=== PATIENT | male | born 1950 | race Caucasian/White ===

== ENCOUNTER 2021-02-26 14:11 | Emergency (ER) | payer MEDICARE, OTHER, SELFPAY ==
[2021-02-26 14:16] VITALS: BP 150/78; PULSE 97; RESP 28; TEMP 36.7; O2SAT 96; BMI 28.5
--- NOTE | 2021-02-26 14:24 | DI.RAD.S_ITS ---
PROCEDURE: XR CHEST 2V INDICATIONS: covid +, continued cough, shortness of breath TECHNIQUE: 2 views of the chest were acquired. COMPARISON: None. FINDINGS: Surgical changes and devices: None. Lungs and pleura: Mild patchy bilateral perihilar opacity. Ill-defined densities within the right mid lung and lower lung. No pleural effusions or pneumothorax. Mediastinum: Mediastinal contours are normal. Heart size is normal. Bones and chest wall: No suspicious bony abnormalities. Soft tissues appear unremarkable. IMPRESSION: Bilateral pneumonia. Continued plain film surveillance is recommended to ensure resolution, and to exclude underlying or central malignancy. Dictated by: Cony Tinsley M.D. on 02/26/2021 at 15:17 Approved by: Cony Tinsley M.D. on 02/26/2021 at 15:18
[2021-02-26 15:30] VITALS: BP 139/85; PULSE 77; RESP 18; O2SAT 97
--- NOTE | 2021-02-26 15:51 | ED.FEVER ---
HPI - Fever <David Schneider PA-C - Last Filed: 02/26/21 19:55> General Chief Complaint: Fever Stated Complaint: Had COVID, Possible Pneumonia Time Seen by Provider: 02/26/21 14:19 Source: patient Mode of arrival: Ambulatory History of Present Illness HPI Narrative: Patient is a 70-year-old male presenting to the emergency department today for evaluation cough and shortness of breath. Patient states that he tested positive for COVID-19 on 02/13/2021 and has experienced increased cough, shortness of breath, and generalized myalgias since then. Patient states that he has also experienced continued fever and fatigue. He presents to the emergency department today concerned about pneumonia and requests a chest x-ray. Patient denies chills, chest pain, nausea, vomiting, diarrhea, abdominal pain, dysuria, hematuria, sore throat, earache, or any other concerning symptoms. No further concerns were voiced at this time. Related Data Home Medications Medication Instructions Recorded Confirmed No Known Home Medications 02/26/21 02/26/21 Allergies Allergy/AdvReac Type Severity Reaction Status Date / Time adhesive tape Allergy Intermediate Redness of Verified 02/26/21 14:22 Skin Review of Systems <David Schneider PA-C - Last Filed: 02/26/21 19:55> Constitutional Constitutional: Denies chills, Reports fatigue, Reports fever(s), Denies frequent falls, Denies lethargy and Denies weakness ENT Ears, Nose, Mouth, and Throat: Denies change in voice, Denies dizziness, Denies neck pain, Denies sore throat and Denies throat swelling Cardiovascular Cardiovascular: Denies chest pain, Denies irregular heart rhythm, Denies lightheadedness, Denies palpitations, Reports dyspnea, Denies dyspnea on exertion and Denies orthopnea Respiratory Respiratory: Reports cough, Reports dyspnea, Denies dyspnea on exertion and Denies wheezing Gastrointestinal Gastrointestinal: Denies abdominal pain, Denies change in bowel habits, Denies diarrhea, Denies nausea and Denies vomiting Genitourinary Genitourinary: Denies hematuria, Denies flank pain, Denies urinary incontinence and Denies urinary urgency Musculoskeletal Musculoskeletal: Denies back pain, Denies muscle weakness, Reports myalgias, Denies neck pain, Denies numbness and Denies tingling Integumentary/Breasts Skin/Breast: Denies pruritus, Denies erythema, Denies rash and Denies wounds Neurologic Neurologic: Denies dizziness, Denies frequent falls, Denies numbness, Denies tingling and Denies weakness Endocrine Endocrine: Reports fatigue and Denies palpitations Allergic/Immunologic Allergic/Immunologic: Denies throat swelling and Denies wheezing Patient History <David Schneider PA-C - Last Filed: 02/26/21 19:55> Social History Smoking Status: Never smoker Smoking Status: Never smoker alcohol intake frequency: 0-2 drinks per day Substance Use Type: does not use Exam <David Schneider PA-C - Last Filed: 02/26/21 19:55> Narrative Exam Narrative: GENERAL: 70 year old patient appears stated age. Well-developed patient, in no acute distress. HEAD: Atraumatic. Normocephalic. EYES: Pupils equal round and reactive. Extraocular motions intact. No scleral icterus. No injection or drainage. ENT: Nose without bleeding, purulent drainage. Throat without erythema, tonsillar hypertrophy or exudate. Airway patent. NECK: Trachea midline. Non tender CARDIOVASCULAR: Regular rate and rhythm without murmurs, gallops, or rubs. RESPIRATORY: Clear to auscultation. Breath sounds equal bilaterally. No wheezes, rales, or rhonchi. GASTROINTESTINAL: Abdomen soft, non-tender, nondistended. EXTREMITIES: No edema or joint tenderness. BACK: Nontender without deformity or crepitance. No flank tenderness. NEURO: AOx3. SKIN: No rash or erythema of visible areas Initial Vital Signs Initial Vital Signs: Vital Signs Temperature 98.1 F 02/26/21 14:16 Pulse Rate 97 H 02/26/21 14:16 Respiratory Rate 28 H 02/26/21 14:16 Blood Pressure 150/78 H 02/26/21 14:16 Pulse Oximetry 96 02/26/21 14:16 <Nguyễn Bartlett DO - Last Filed: 02/27/21 22:38> Initial Vital Signs Initial Vital Signs: Vital Signs Temperature 98.1 F 02/26/21 14:16 Pulse Rate 97 H 02/26/21 14:16 Respiratory Rate 28 H 02/26/21 14:16 Blood Pressure 150/78 H 02/26/21 14:16 Pulse Oximetry 96 02/26/21 14:16 Course <David Schneider PA-C - Last Filed: 02/26/21 19:55> Course Course Narrative: Chest x-ray, CBC, CMP, procalcitonin obtained. Patient's vital signs stable in the emergency department. Orders Ordered: ED Orders 02/26/21 14:24 XR chest 2V Stat 02/26/21 16:00 CBC Auto Diff [Complete Blood Count AUTO DIFF] Stat CMP [Comprehensive Metabolic Panel] Stat Procalcitonin Stat Vital Signs Vital signs: Vital Signs - 8 hr 02/26/21 14:16 02/26/21 15:30 02/26/21 17:13 Temperature 98.1 F Pulse Rate 97 H 77 80 Respiratory Rate 28 H 18 18 Blood Pressure 150/78 H 139/85 158/93 H Pulse Oximetry 96 97 96 <Nguyễn Bartlett DO - Last Filed: 02/27/21 22:38> Orders Ordered: ED Orders 02/26/21 14:24 XR chest 2V Stat 02/26/21 16:00 CBC Auto Diff [Complete Blood Count AUTO DIFF] Stat CMP [Comprehensive Metabolic Panel] Stat Procalcitonin Stat Vital Signs Vital signs: Vital Signs - 8 hr 02/26/21 14:16 02/26/21 15:30 02/26/21 17:13 Temperature 98.1 F Pulse Rate 97 H 77 80 Respiratory Rate 28 H 18 18 Blood Pressure 150/78 H 139/85 158/93 H Pulse Oximetry 96 97 96 MDM - Fever <SABAS Tubbs Last Filed: 02/26/21 19:55> Lab Data Result diagrams: 02/26/21 16:00 02/26/21 16:00 Labs: Lab Results 02/26/21 02/26/21 Range/Units 16:00 16:00 WBC 5.4 (4.5-11.0) X10^3/uL RBC 4.38 L (4.5-5.9) X10^6/uL Hgb 13.5 (13.5-17.5) g/dL Hct 38.1 L (41-53) % MCV 87.0 (80-100) fL MCH 30.8 (26-34) PG MCHC 35.3 (30-36) % RDW 13.4 (11.6-14.8) % Plt Count 195 (150-400) X10^3/uL Neut % (Auto) 49.5 L (50-75) % Lymph % (Auto) 30.8 (25-40) % Culberson % (Auto) 17.3 H (3-14) % Eos % (Auto) 1.3 L (2-4) % Baso % (Auto) 1.1 (0-2) % Neut # (Auto) 2700 (3814-6788) /uL Lymph # (Auto) 1700 (8784-2274) /uL Culberson # (Auto) 900 (0-900) /uL Eos # (Auto) 100 (0-450) /uL Baso # (Auto) 100 (0-100) /uL Sodium 136 L (137-145) mmol/L Potassium 4.0 (3.4-5.1) mmol/L Chloride 103 (98-107) mmol/L Carbon Dioxide 27 (22-32) mmol/L BUN 16 (9-20) mg/dL Creatinine 0.90 (0.66-1.25) mg/dL Estimated GFR > 60.0 (>60) mL/min BUN/Creatinine Ratio 17.8 (6-22) Glucose 124 H (80-110) mg/dL Calcium 9.0 (8.4-10.2) mg/dL Total Bilirubin 1.1 (0.2-1.3) mg/dL AST 41 (17-59) IU/L ALT 36 (<50) IU/L Alkaline Phosphatase 43 (38-126) U/L Total Protein 7.9 (6.3-8.2) g/dL Albumin 4.3 (3.5-5.0) g/dL Globulin 3.6 (1.7-4.1) g/dL Albumin/Globulin Ratio 1.2 (1.0-2.8) Procalcitonin 0.05 (<0.5) ng/mL Imaging Data Chest x-ray: Radiologist's Impression: PROCEDURE:? XR CHEST 2V ? INDICATIONS:? covid +, continued cough, shortness of breath ? TECHNIQUE:? 2 views of the chest were acquired.? ? COMPARISON:? None. ? FINDINGS:? ? Surgical changes and devices:? None.? ? Lungs and pleura:? Mild patchy bilateral perihilar opacity.? Ill-defined densities within the right mid lung and lower lung.? No pleural effusions or pneumothorax.? ? Mediastinum:? Mediastinal contours are normal.? Heart size is normal.? ? Bones and chest wall:? No suspicious bony abnormalities.? Soft tissues appear unremarkable.? ? IMPRESSION:? Bilateral pneumonia. Continued plain film surveillance is recommended to ensure resolution, and to exclude underlying or central malignancy. ? ? Dictated by: Cony Tinsley M.D. on 02/26/2021 at 15:17 ? ? Approved by: Cony Tinsley M.D. on 02/26/2021 at 15:18 ? MDM Narrative Medical decision making narrative: To consider viral pneumonia versus bacterial pneumonia versus COVID-19 versus viral upper respiratory infection versus bronchitis versus COPD. Overall physical examination, history, and lab work obtained in the emergency department today her reassuring. Discussed results of chest x-ray with patient informed him that he confirmed bilateral pneumonia. I informed the patient considering the remainder of his labs returning without acute abnormality that he was likely experiencing a viral pneumonia. Strict return precautions were discussed with the patient prior to discharge. At this time patient is stable and ready for discharge. <Nguyễn Bartlett, DO - Last Filed: 02/27/21 22:38> Lab Data Labs: Lab Results 02/26/21 02/26/21 Range/Units 16:00 16:00 WBC 5.4 (4.5-11.0) X10^3/uL RBC 4.38 L (4.5-5.9) X10^6/uL Hgb 13.5 (13.5-17.5) g/dL Hct 38.1 L (41-53) % MCV 87.0 (80-100) fL MCH 30.8 (26-34) PG MCHC 35.3 (30-36) % RDW 13.4 (11.6-14.8) % Plt Count 195 (150-400) X10^3/uL Neut % (Auto) 49.5 L (50-75) % Lymph % (Auto) 30.8 (25-40) % Culberson % (Auto) 17.3 H (3-14) % Eos % (Auto) 1.3 L (2-4) % Baso % (Auto) 1.1 (0-2) % Neut # (Auto) 2700 (2136-5500) /uL Lymph # (Auto) 1700 (4829-3428) /uL Culberson # (Auto) 900 (0-900) /uL Eos # (Auto) 100 (0-450) /uL Baso # (Auto) 100 (0-100) /uL Sodium 136 L (137-145) mmol/L Potassium 4.0 (3.4-5.1) mmol/L Chloride 103 (98-107) mmol/L Carbon Dioxide 27 (22-32) mmol/L BUN 16 (9-20) mg/dL Creatinine 0.90 (0.66-1.25) mg/dL Estimated GFR > 60.0 (>60) mL/min BUN/Creatinine Ratio 17.8 (6-22) Glucose 124 H (80-110) mg/dL Calcium 9.0 (8.4-10.2) mg/dL Total Bilirubin 1.1 (0.2-1.3) mg/dL AST 41 (17-59) IU/L ALT 36 (<50) IU/L Alkaline Phosphatase 43 (38-126) U/L Total Protein 7.9 (6.3-8.2) g/dL Albumin 4.3 (3.5-5.0) g/dL Globulin 3.6 (1.7-4.1) g/dL Albumin/Globulin Ratio 1.2 (1.0-2.8) Procalcitonin 0.05 (<0.5) ng/mL Discharge Plan Departure Patient Disposition: Home Clinical Impression: COVID-19, Viral pneumonia Activity Restrictions/Additional Instructions: *You have been diagnosed with COVID-19, viral pneumonia *What to do: *Please continue to take your regular medications as directed. [ ] New medication prescriptions sent to your pharmacy: [ ] [ ] New medication written as a paper prescription [X] No new medications given *Please follow up with your primary care provider in 2-3 days, call for an appointment. Let them know you were seen in the Emergency Department and that we ask that you be seen in follow up. We will electronically transmit a record of today's note if your PCP is in our system *If you do not have a primary care provider please contact the [facility] Resource line at [phone]. They will ask some questions about your medical history and help get you set up with a doctor in the community. *Return to Emergency Department if you should have any new, worsening or concerning symptoms, such as fever greater than 101 F, shaking chills, worsening shortness of breath, persistent vomiting or other bothersome symptoms. Prescriptions: No Action No Known Home Medications 0RF <Nguyễn Barteltt DO - Last Filed: 02/27/21 22:38> Cosign ED Attending Kenature Attestation: I was immediately available in the department for consultation. This documentation has been reviewed and I agree with assessment and plan. Supervised by Nguyễn Bartlett DO
[2021-02-26 16:14] LABS: Add Manual Diff / Slide Review NO; Basophils Absolute Auto 100 /uL (0-100); Basophils Percent Auto 1.1 % (0-2); Eosinophils Absolute Auto 100 /uL (0-450); Eosinophils Percent Auto 1.3 % (2-4); Hematocrit 38.1 % (41-53); Hemoglobin 13.5 g/dL (13.5-17.5); Lymphocytes Absolute Auto 1700 /uL (1100-4500); Lymphocytes Percent Auto 30.8 % (25-40); Mean Corpuscular HGB Conc 35.3 % (30-36); Mean Corpuscular Hemoglobin 30.8 PG (26-34); Monocytes Absolute Auto 900 /uL (0-900); Monocytes Percent Auto 17.3 % (3-14); Neutrophils Absolute Auto 2700 /uL (1500-7000); Neutrophils Percent Auto 49.5 % (50-75); Platelet Count 195 X10^3/uL (150-400); Red Blood Cell Count 4.38 X10^6/uL (4.5-5.9); Red Cell Distribution Width 13.4 % (11.6-14.8); White Blood Cell Count 5.4 X10^3/uL (4.5-11.0)
[2021-02-26 16:26] LABS: Alanine Aminotransferase 36 IU/L (<50); Albumin 4.3 g/dL (3.5-5.0); Albumin Globulin Ratio 1.2 (1.0-2.8); Alkaline Phosphatase 43 U/L (38-126); Aspartate Aminotransferase 41 IU/L (17-59); BUN Creatinine Ratio 17.8 (6-22); Bilirubin Total 1.1 mg/dL (0.2-1.3); Blood Urea Nitrogen 16 mg/dL (9-20); Carbon Dioxide 27 mmol/L (22-32); Chloride 103 mmol/L (98-107); Estimated Glomerular Filt Rate > 60.0 mL/min (>60); Globulin 3.6 g/dL (1.7-4.1); Glucose 124 mg/dL (80-110); HEMOLYSIS < 15 (0-50); Sodium 136 mmol/L (137-145); Total Protein 7.9 g/dL (6.3-8.2)
[2021-02-26 16:43] LABS: Procalcitonin 0.05 ng/mL (<0.5)
[2021-02-26 17:13] VITALS: BP 158/93; PULSE 80; RESP 18; O2SAT 96
== END 2021-02-26 17:15 | disposition home or self-care (01) ==
PROVIDERS: Emergency Provider Physician Assistant
DX: U07.1 COVID-19 (principal); J12.82 Pneumonia due to coronavirus disease 2019
CPT/HCPCS: 36415; 71046; 80053; 84145; 85025; 99284

== ENCOUNTER 2021-07-05 11:23 | Emergency (ER) | payer MEDICARE, OTHER, SELFPAY ==
--- NOTE | 2021-07-05 11:58 | DI.RAD.S_ITS ---
PROCEDURE: XR FINGER RT MIN 2V INDICATIONS: lac and deformity after fall TECHNIQUE: AP hand, 2 views of the right 5th finger(s) acquired. COMPARISON: None. FINDINGS: Bones: No fractures or dislocations. No suspicious bony lesions. Soft tissues: No suspicious soft tissue calcifications. IMPRESSION: No acute fracture. No osseous lesion. If symptoms and/or clinical suspicion for pathology persist, further assessment with repeat, or advanced imaging (e.g., CT, MRI, or bone scan) may be helpful for further assessment. Dictated by: Cony Tinsley M.D. on 07/05/2021 at 12:18 Approved by: Cony Tinsley M.D. on 07/05/2021 at 12:19
[2021-07-05 12:00] VITALS: BP 196/100; PULSE 75; RESP 18; TEMP 36.6; O2SAT 95; BMI 30.8
--- NOTE | 2021-07-05 13:10 | PC.NURSE ---
Pt reports he was cleaning out his camper this morning when he fell and put his hand out to catch himself. He reports his finger was sideways but that he realigned it. Deep laceration noted to his right little finger, currently not bleeding. Abrasion on his right forearm and small scratch on left forearm. Pt reports hitting his head. Denies LOC and blood thinners. Pt states not being on any medication. Pain is 2/10.
--- NOTE | 2021-07-05 13:14 | PC.NURSE ---
Pt not up to date on his TDAP. Pt declines wanting a TDAP. STEFFI chen.
[2021-07-05 13:19] VITALS: BP 184/101
[2021-07-05] MEDS: LIDO 1%/SOD BICARB 8.4% (10ML) 10 ML SYRINGE INJ (15:04)
[2021-07-05 15:26] VITALS: BP 171/96; PULSE 72; RESP 18; O2SAT 95
--- NOTE | 2021-07-05 15:27 | PC.NURSE ---
Pt's BP remained elevated throughout visit. Pt denied headache, chest pain, SOB. Provider made aware. Encouraged pt to follow up with PCP. He stated, I'm not going to do that. Reports provider in [place] and wants to find a new one. Discussed keeping a log of BP and returning to ER if any symptoms evolve. Provider also went in and encouraged follow up. Pt and support person exhibited understanding.
--- NOTE | 2021-07-05 16:50 | ED_ITS ---
HPI - Extremity Injury (Upper) <Ashley Venegas PA-C - Last Filed: 07/05/21 17:15> General Chief Complaint: Extremity Injury, Upper Stated Complaint: fell lacerated finger & broke or dislocated Time Seen by Provider: 07/05/21 12:55 Source: patient Mode of arrival: Ambulatory History of Present Illness HPI narrative: Patient is a 71-year-old male presenting today with a finger laceration that occurred 3 hours ago. Patient states he was doing work inside his trailer and fell. He reports hitting his right 4th digit and it dislocated and lacerated. He provided pressure and bandaged his finger after injury. He additionally reports hitting the left side of his head, shoulder, and hip. He denies any loss of consciousness. He denies any headache, dizziness, changes in speech, confusion, and has full range of motion of his left shoulder and hip with no pain. He is unsure of what he cut his finger on inside of his trailer. He is not on any blood thinners and takes no daily medications. He is unaware of his last tetanus but is refusing tetanus immunization today. Related Data Home Medications Medication Instructions Recorded Confirmed No Known Home Medications 02/26/21 02/26/21 Allergies Allergy/AdvReac Type Severity Reaction Status Date / Time adhesive tape Allergy Intermediate Redness of Verified 02/26/21 14:22 Skin Review of Systems <Ashley Venegas PA-C - Last Filed: 07/05/21 17:15> Review of Systems Narrative: GENERAL: Denies fatigue, fever, or chills HEENT: Denies ear pain, vision changes, sore throat, or difficulty swallowing RESPIRATORY: Denies shortness of breath, cough, or wheezing CARDIOVASCULAR: Denies chest pain, pressure, palpitations, or edema GASTROINTESTINAL: Denies, nausea, vomiting, changes in bowel movements, or abdominal pain : Denies dysuria, frequency, hematuria, or flank pain MUSCULOSKELETAL: See HPI. SKIN: No rash, pruritis, or erythema NEUROLOGIC: Denies weakness, dizziness, headache, numbness, tingling or confusion PSYCHIATRIC: No concerning psychosocial issues. Patient History <Ashley Venegas PA-C - Last Filed: 07/05/21 17:15> Social History Smoking Status: Never smoker Smoking Status: Never smoker alcohol intake frequency: 0-2 drinks per day Substance Use Type: does not use Exam <Ashley Venegas PA-C - Last Filed: 07/05/21 17:15> Narrative Exam Narrative: GENERAL: 71 year old patient appears stated age. Well-developed patient, in mild distress. HEAD: Atraumatic. Normocephalic. EYES: Pupils equal round and reactive. Extraocular motions intact. No scleral icterus. No injection or drainage. ENT: Nose without bleeding, purulent drainage. Throat without erythema, tonsillar hypertrophy or exudate. Airway patent. NECK: Trachea midline. Non tender CARDIOVASCULAR: Regular rate and rhythm without murmurs, gallops, or rubs. RESPIRATORY: Clear to auscultation. Breath sounds equal bilaterally. No wheezes, rales, or rhonchi. GASTROINTESTINAL: Abdomen soft, non-tender, nondistended. EXTREMITIES: 2 cm linear laceration on palmar side of right 4th digit. Laceration appears superficial with no signs of muscle or tendon impairment. Laceration is not actively bleeding. Patient has good range of motion and full sensation of affected finger. Finger does not appear dislocated. BACK: Nontender without deformity or crepitance. No flank tenderness. NEURO: AOx3. SKIN: No rash or erythema of visible areas Initial Vital Signs Initial Vital Signs: Vital Signs Temperature 97.8 F 07/05/21 12:00 Pulse Rate 75 07/05/21 12:00 Respiratory Rate 18 07/05/21 12:00 Blood Pressure 196/100 H 07/05/21 12:00 Pulse Oximetry 95 07/05/21 12:00 Procedures <Ashley Venegas PA-C - Last Filed: 07/05/21 17:15> Laceration Repair Laceration 1: Site: hand Side (If applicable): right Size (cm): 2 Description: linear Depth: simple, single layer Local Anesthetic: lidocaine 1% Amount of anesthesia used (mL): 2 Pre-repair: wound explored, irrigated extensively, deep structures intact and cleansed with chlorhexadine Skin layer closed with: nylon Skin layer suture size: 5-0 Number of sutures: 7 Technique: simple, interrupted Course <Ashley Venegas PA-C - Last Filed: 07/05/21 17:15> Orders Ordered: ED Orders 07/05/21 11:58 XR finger RT min 2V Stat Discontinued Medications Diphtheria/Tetanus/Acell Pertussis (Tet,Diph,Pertuss(Acell),Vac/Pf 0.5 Ml Syrin ge) 0.5 ml IM .ONCE ONE Stop: 07/05/21 11:59 Last Admin: 07/05/21 11:59 Dose: Not Given Documented by: KO Lidocaine/Sodium Bicarbonate (Lido 1%/Sod Bicarb 8.4% (10ml) 10 Ml Syringe) 10 ml INJ NOW ONE Stop: 07/05/21 13:51 Last Admin: 07/05/21 15:04 Dose: 10 ml Documented by: KO Vital Signs Vital signs: Vital Signs - 8 hr 07/05/21 12:00 07/05/21 13:19 07/05/21 15:26 Temperature 97.8 F Pulse Rate 75 72 Respiratory Rate 18 18 Blood Pressure 196/100 H 184/101 H 171/96 H Pulse Oximetry 95 95 MDM - Extremity Injury (Upper) <Ashley Venegas PA-C - Last Filed: 07/05/21 17:15> Imaging Data Extremity x-ray #1: Radiologist's Impression: [place] [address] XRay Report Signed Patient: Phani Ruiz MR#: [id number] : 1950 Acct:[id number] Age/Sex: 71 / M Date of Service: 07/05/21 Loc: ED Accession Number: [id number] ?? Procedure: XR finger RT min 2V Ordering Provider: Phani Holly MD PROCEDURE:? XR FINGER RT MIN 2V ? INDICATIONS:? lac and deformity after fall ? TECHNIQUE:? AP hand, 2 views of the right 5th finger(s) acquired.? ? COMPARISON:? None. ? FINDINGS:? ? Bones:? No fractures or dislocations.? No suspicious bony lesions.? ? Soft tissues:? No suspicious soft tissue calcifications.? ? IMPRESSION:? No acute fracture. No osseous lesion. If symptoms and/or clinical suspicion for pathology persist, further assessment with repeat, or advanced imaging (e.g., CT, MRI, or bone scan) may be helpful for further assessment. ? ? Dictated by: Cony Tinsley M.D. on 07/05/2021 at 12:18 ? ? Approved by: Cony Tinsley M.D. on 07/05/2021 at 12:19 ? [facility] Narrative Medical decision making narrative: Patient is a 71-year-old male presenting with a finger laceration from 3 hours ago. X-ray was obtained and showed no sign of fracture. Upon physical inspection, laceration appears clean, linear, and superficial with no deep structure involvement. Laceration is not currently actively bleeding. Patient exhibits good range of motion with sensation intact. Laceration was irrigated, cleaned with chlorhexidine, and closed with 7 sutures. A new dressing was applied after procedure. Patient was educated on keeping his laceration clean and to watch out for obvious signs of infection. He was instructed to follow up with his primary care provider for suture removal in 7-10 days. The patient declined tetanus immunization. Patient's blood pressure was elevated throughout the duration of his visit which is a new finding for him, as he reports his blood pressure is usually around 130/80. He declined any headache, dizziness, blurry vision, or chest pain. He believes it is due to his injury and declines further workup for blood pressure and states he will follow-up with a primary care provider for further evaluation and management. Findings and discharge diagnosis discussed with patient/family followed by verbalization of understanding Return precautions discussed with patient/family whom verbalize understanding. Discharge Plan Departure Patient Disposition: Home Clinical Impression: Injury of finger of right hand Qualifiers: Encounter type: initial encounter Qualified Code(s): S69.91XA - Unspecified injury of right wrist, hand and finger(s), initial encounter Instructions: DI for Laceration Repair -- Finger Activity Restrictions/Additional Instructions: You were seen today for a finger laceration. Please keep the wound clean and dry to the best of your ability. Please monitor for signs of infection such as redness to the skin or increasing pain. Have the sutures/aleksandar removed by your doctor in about 7 days. If you are unable to get into your doctor, we would be happy to remove the sutures/aleksandar in that same timeframe. *If you do not have a primary care provider please contact the [facility] Call Center at [phone] and they can help get you set up with a doctor in the community. Prescriptions: No Action No Known Home Medications 0RF
== END 2021-07-05 15:29 | disposition home or self-care (01) ==
PROVIDERS: Emergency Provider Physician Assistant
DX: S61.214A Laceration without foreign body of right ring finger without damage to nail, initial encounter (principal); W45.8XXA Other foreign body or object entering through skin, initial encounter
CPT/HCPCS: 12001; 73140; 99283

== ENCOUNTER 2023-01-10 16:20 | Emergency (ER) | payer MEDICARE, OTHER, SELFPAY ==
[2023-01-10] VITALS (13 sets, daily range): BP systolic 170–231; BP diastolic 83–107; PULSE 66–89; RESP 12–23; TEMP 36.4; O2SAT 95–100; BMI 28.3
--- NOTE | 2023-01-10 16:35 | DI.RAD.S_ITS ---
PROCEDURE: XR CHEST 1V INDICATIONS: chest pain TECHNIQUE: One view of the chest was acquired. COMPARISON: [facility], CR, XR CHEST 2V, 02/26/2021, 14:22. FINDINGS: Surgical changes and devices: None. Lungs and pleura: Lungs are clear. No pleural effusions or pneumothorax. Mediastinum: Mediastinal contours appear normal. Heart size is normal. Bones and chest wall: No suspicious bony lesions. Overlying soft tissues appear unremarkable. IMPRESSION: No acute process. Dictated by: Cony Tinsley M.D. on 01/10/2023 at 16:54 Approved by: Cony Tinsley M.D. on 01/10/2023 at 16:56
[2023-01-10 17:18] LABS: Add Manual Diff / Slide Review NO; Basophils Absolute Auto 100 /uL (0-100); Basophils Percent Auto 1.2 % (0-2); Eosinophils Absolute Auto 100 /uL (0-450); Eosinophils Percent Auto 1.7 % (2-4); Hematocrit 41.2 % (41-53); Hemoglobin 14.1 g/dL (13.5-17.5); Lymphocytes Absolute Auto 3100 /uL (1100-4500); Lymphocytes Percent Auto 46.5 % (25-40); Mean Corpuscular HGB Conc 34.3 % (30-36); Mean Corpuscular Hemoglobin 30.2 PG (26-34); Monocytes Absolute Auto 600 /uL (0-900); Monocytes Percent Auto 8.5 % (3-14); Neutrophils Absolute Auto 2800 /uL (1500-7000); Neutrophils Percent Auto 42.1 % (50-75); Platelet Count 176 X10^3/uL (150-400); Red Blood Cell Count 4.68 X10^6/uL (4.5-5.9); Red Cell Distribution Width 13.9 % (11.6-14.8); White Blood Cell Count 6.6 X10^3/uL (4.5-11.0)
[2023-01-10 17:24] LABS: Prothrombin Time 11.7 SECONDS (9.4-12.5)
[2023-01-10 17:27] LABS: PTT Partial Thromboplastin Tim 30 SECONDS (25.1-36.5)
[2023-01-10 17:28] LABS: Alanine Aminotransferase 38 IU/L (<50); Albumin 4.8 g/dL (3.5-5.0); Albumin Globulin Ratio 1.3 (1.0-2.8); Alkaline Phosphatase 57 U/L (38-126); Aspartate Aminotransferase 36 IU/L (17-59); BUN Creatinine Ratio 26.2 (6-22); Bilirubin Total 1.2 mg/dL (0.2-1.3); Blood Urea Nitrogen 22 mg/dL (9-20); Calcium 9.8 mg/dL (8.4-10.2); Carbon Dioxide 24 mmol/L (22-32); Chloride 103 mmol/L (98-107); Creatine Kinase 110 U/L (55-170); Estimated Glomerular Filt Rate > 60 mL/min (>60); Globulin 3.7 g/dL (1.7-4.1); Glucose 93 mg/dL (80-110); HEMOLYSIS 46 (0-50); Lipase 37 U/L (23-300); Magnesium 2.1 mg/dL (1.6-2.3); Sodium 137 mmol/L (137-145); Total Protein 8.5 g/dL (6.3-8.2)
[2023-01-10 17:39] LABS: Troponin I < 0.012 ng/mL (0.01-0.034)
--- NOTE | 2023-01-10 20:07 | PC.NURSE ---
Patient updated on red phone about 35 min ago, explained patient's wait and reassurred patient we were doing out best to get him back. Patient brought back to recheck vital. Patient continues to be Hypertensive, Denies chest pain or SOB. Patient alert and oriented. Frustrated and stressed out about potentially having a stroke secondary to his blood pressure. Reassurred patient of valid concerns and doing our best to get him seen by provider.
[2023-01-10 21:54] LABS: Troponin I < 0.012 ng/mL (0.01-0.034)
--- NOTE | 2023-01-10 23:22 | ED.GENADULT ---
HPI - General Adult General Chief complaint: Hypertension Stated complaint: HIGH B/P/ FEELS WOOZY Time Seen by Provider: 01/10/23 20:40 Source: patient Mode of arrival: Wheelchair History of Present Illness HPI narrative: Patient is a 72-year-old male without significant past medical history presenting today with spacey and elevated pressure. 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 He was between patient's between 315 and 330 when he opened small engine for a fan and he received with of chemicals. The next patient noted that he was not sharp as normal. He would no facial droop he was not slurring his words he reports that he just felt sort of disoriented. No numbness tingling or weakness no difficulty walking. Blood pressure was elevated in office systolic greater than 200 and he came to the ED. He is noted to be hypertensive in the ED with blood pressure 213/95 remained elevated for a couple of hours but eventually has come down without any intervention is 170/83. Patient reports that his disorientation he is back to normal. He does not report that he was being confused he denies any visual changes he had no chest pain no shortness of breath no palpitations. Related Data Home Medications Medication Instructions Recorded Confirmed No Known Home Medications 02/26/21 02/26/21 Allergies Allergy/AdvReac Type Severity Reaction Status Date / Time adhesive tape Allergy Intermediate Redness of Verified 01/10/23 16:31 Skin Review of Systems Review of Systems ROS Unobtainable: All systems reviewed & are unremarkable except as noted in HPI and below Patient History Social History Smoking Status: Never smoker Smoking Status: Never smoker alcohol intake frequency: 0-2 drinks per day Substance Use Type: does not use Exam Initial Vital Signs Initial Vital Signs: Vital Signs Temperature 97.6 F 01/10/23 16:31 Pulse Rate 79 01/10/23 16:31 Respiratory Rate 17 01/10/23 16:31 Blood Pressure 213/95 H 01/10/23 16:31 Pulse Oximetry 99 01/10/23 16:31 Oxygen Delivery Method Room Air 01/10/23 16:31 GENERAL: Alert well-appearing 72-year-old male and in no acute distress. HEENT: Head atraumatic,EOMI, pupils reactive, face symmetric, moist mucous membranes CARDIOVASCULAR: Regular rate and rhythm without murmurs, rubs or gallops. RESPIRATORY: Breath sounds equal bilaterally, no wheezes rales or rhonchi. ABDOMEN: Soft, nontender. Normoactive bowel sounds all 4 quadrants. No guarding or rebound. EXTREMITIES: Normal range of motion, no clubbing or edema. Neurovascularly intact NEUROLOGICAL: Alert and oriented x4.Normal gait and speech. Cranial nerves II through XII grossly intact. Good vsgrar-[id number], good atbc-xa-sxuv, strength equal bilaterally, no dysarthria or aphasia, sensation in tact to soft touch bilaterally, no visual changes, no facial droop SKIN: Warm, dry, no laceration, no petechiae, no rashes or lesions. Scores NIH Stroke Scale Level of Conciousness: Alert, keenly responsive Ask month/age: Answers both questions correctly. Open/close eyes, close hand: Performs both tasks correctly Best gaze horizontal: Normal Visual simon: No visual loss Facial palsy: Normal symetrical movement Left arm drift: No drift for full 10 sec Right arm drift: No drift for full 10 sec Left leg drift: No drift for full 5 sec Right leg drift: No drift for full 5 sec Limb ataxia: Absent Sensory on face/arms/legs: Normal, no sensory loss Best language: No aphasia, normal Dysarthria: Normal Extinction or inattention: No abnormality Total NIH Stroke scale score: 0 Course Orders Ordered: ED Orders 01/10/23 23:37 CT angio head and neck Stat Discontinued Medications Aspirin (Aspirin 81 Mg Chew Tab) 324 mg PO NOW ONE Stop: 01/10/23 16:36 Last Admin: 01/11/23 01:30 Dose: Not Given Documented By: SANJAY Labetalol HCl (Labetalol 20 Mg/4 Ml Syringe) 5 mg IV NOW ONE Stop: 01/11/23 01:46 Last Admin: 01/11/23 01:51 Dose: 5 mg Documented By: EMA Vital Signs Vital signs: Vital Signs - 8 hr 01/10/23 20:01 01/10/23 20:51 01/10/23 21:00 Pulse Rate 80 78 Respiratory Rate 12 20 Blood Pressure 201/99 H 231/107 H Pulse Oximetry 100 98 Oxygen Delivery Method Room Air Room Air 01/10/23 21:00 01/10/23 21:10 01/10/23 21:10 Pulse Rate 73 84 Respiratory Rate 22 14 Blood Pressure 202/95 H Pulse Oximetry 97 97 Oxygen Delivery Method Room Air Room Air 01/10/23 21:15 01/10/23 21:15 01/10/23 21:30 Pulse Rate 77 Respiratory Rate 15 Blood Pressure 204/103 H 189/92 H Pulse Oximetry 97 Oxygen Delivery Method Room Air 01/10/23 21:30 01/10/23 21:57 01/10/23 21:57 Pulse Rate 79 66 Respiratory Rate 17 22 Blood Pressure 176/86 H Pulse Oximetry 97 96 Oxygen Delivery Method Room Air Room Air 01/10/23 22:00 01/10/23 22:00 01/10/23 22:30 Pulse Rate 72 76 Respiratory Rate 23 12 Blood Pressure 177/92 H Pulse Oximetry 96 96 Oxygen Delivery Method Room Air Room Air 01/10/23 22:30 01/10/23 23:00 01/10/23 23:00 Pulse Rate 72 Respiratory Rate 18 Blood Pressure 170/83 H 170/83 H Pulse Oximetry 96 Oxygen Delivery Method Room Air 01/10/23 23:30 01/10/23 23:30 01/11/23 00:11 Pulse Rate 89 83 Respiratory Rate 18 20 Blood Pressure 204/100 H Pulse Oximetry 95 Oxygen Delivery Method Room Air 01/11/23 00:35 01/11/23 00:36 01/11/23 00:36 Pulse Rate 84 82 Respiratory Rate 16 17 Blood Pressure 219/106 H Pulse Oximetry 96 96 Oxygen Delivery Method Room Air Room Air 01/11/23 01:00 01/11/23 01:01 01/11/23 01:01 Pulse Rate 78 79 Respiratory Rate 15 16 Blood Pressure 190/89 H Pulse Oximetry 95 95 Oxygen Delivery Method Room Air Room Air 01/11/23 01:30 01/11/23 01:31 01/11/23 01:31 Pulse Rate 78 79 Respiratory Rate 15 18 Blood Pressure 198/95 H Pulse Oximetry 96 94 Oxygen Delivery Method Room Air Room Air 01/11/23 01:51 01/11/23 01:58 01/11/23 01:58 Pulse Rate 76 71 Respiratory Rate 18 Blood Pressure 198/95 H 188/88 H Pulse Oximetry 94 Oxygen Delivery Method Room Air 01/11/23 02:00 01/11/23 02:00 01/11/23 02:05 Pulse Rate 70 68 Respiratory Rate 15 17 Blood Pressure 178/84 H Pulse Oximetry 96 94 Oxygen Delivery Method Room Air Room Air 01/11/23 02:05 01/11/23 02:10 01/11/23 02:10 Pulse Rate 68 Respiratory Rate 22 Blood Pressure 176/83 H 174/84 H Pulse Oximetry 95 Oxygen Delivery Method Room Air Medical Decision Making Lab Data 01/10/23 17:05 01/10/23 17:05 Labs: Lab Results 01/10/23 01/10/23 Range/Units 17:05 17:05 WBC 6.6 (4.5-11.0) X10^3/uL RBC 4.68 (4.5-5.9) X10^6/uL Hgb 14.1 (13.5-17.5) g/dL Hct 41.2 (41-53) % MCV 88.0 (80-100) fL MCH 30.2 (26-34) PG MCHC 34.3 (30-36) % RDW 13.9 (11.6-14.8) % Plt Count 176 (150-400) X10^3/uL Neut % (Auto) 42.1 L (50-75) % Lymph % (Auto) 46.5 H (25-40) % [place] % (Auto) 8.5 (3-14) % Eos % (Auto) 1.7 L (2-4) % Baso % (Auto) 1.2 (0-2) % Neut # (Auto) 2800 (4666-9727) /uL Lymph # (Auto) 3100 (4152-7622) /uL [place] # (Auto) 600 (0-900) /uL Eos # (Auto) 100 (0-450) /uL Baso # (Auto) 100 (0-100) /uL PT 11.7 (9.4-12.5) SECONDS INR 1.0 (0.9-1.3) APTT 30 (25.1-36.5) SECONDS Sodium 137 (137-145) mmol/L Potassium 4.0 (3.4-5.1) mmol/L Chloride 103 (98-107) mmol/L Carbon Dioxide 24 (22-32) mmol/L BUN 22 H (9-20) mg/dL Creatinine 0.84 (0.66-1.25) mg/dL Estimated GFR > 60 (>60) mL/min BUN/Creatinine Ratio 26.2 H (6-22) Glucose 93 (80-110) mg/dL Calcium 9.8 (8.4-10.2) mg/dL Magnesium 2.1 (1.6-2.3) mg/dL Total Bilirubin 1.2 (0.2-1.3) mg/dL AST 36 (17-59) IU/L ALT 38 (<50) IU/L Alkaline Phosphatase 57 (38-126) U/L Total Creatine Kinase 110 (55-170) U/L Troponin I < 0.012 < 0.012 (0.01-0.034) ng/mL Total Protein 8.5 H (6.3-8.2) g/dL Albumin 4.8 (3.5-5.0) g/dL Globulin 3.7 (1.7-4.1) g/dL Albumin/Globulin Ratio 1.3 (1.0-2.8) Lipase 37 (23-300) U/L ECG Data Interpretation: Normal sinus rhythm rate 78 NJ interval 160 QRS [address] changes MDM Narrative Medical decision making narrative: Patient very nice 72-year-old male who has hyperlipidemia but not on medications presenting today with spaciness and elevated blood pressure. He is actually been in the ED for number of hours with pretty persistent elevated blood pressure. It has come down below 270 over started going back. He has no focal deficits. He had no difficulty speaking aphasia or dysphasia. NIH stroke scale is 0. CT angio does show atherosclerotic disease along with high-grade stenosis in the vertebral artery. Less than 50% stenosis on the right side. Blood work does not show any evidence of end-organ damage. EKG is within normal limits. At this time patient's symptoms have completely resolved blood pressure remains elevated. Recommend following and checking his blood pressure regularly he may need medication. He is given 5 mg of labetalol. Symptoms are really not consistent with TIA or CVA. He is noted to have elevated blood pressure today pretty persistently however upon further record review blood pressure in June of 2021 was just decide when he was in the ED for finger injury. At this time we discussed monitoring blood pressure at home following up may needing blood pressure medication. He is not having any symptoms of chest pain shortness of breath no concern for acute coronary syndrome or dissection. No evidence of an infection. At this time I really do not see need for admission or further workup. Unfortunately his friend who was at the bedside left. He feels very comfortable walking to his office to get his car. Discharge Plan Departure Patient Disposition: Home Clinical Impression: Elevated blood pressure reading Instructions: DI for High Blood Pressure Activity Restrictions/Additional Instructions: *You have been diagnosed with elevated blood pressure *What to do: At this time I have your symptoms may not be related here blood pressure you were really having symptoms of stroke. Please monitor your blood pressure record it once daily. You may require blood pressure medication *Continue to take medications as directed *Follow up with your primary care provider in 2-3 days or call [phone] *Return to ER if you should have increased confusion slurring of speech difficulty finding the right word chest pain shortness of breath headache numbness tingling weakness or any new, worsening or concerning symptoms Prescriptions: No Action No Known Home Medications Referrals: Miscellstella,DoctorMD [Primary Care Provider] - Stand Alone Forms: Patient Portal/API
--- NOTE | 2023-01-10 23:37 | DI.CT.S_ITS ---
PROCEDURE: CT ANGIO HEAD AND NECK INDICATIONS: HTN confusion TECHNIQUE: After the administration of intravenous contrast, 1 mm thick sections acquired from the aortic arch through the [place] of [place]. 3-dimensional lveonva-garrjgkeu-emcoawtnqi (MIP) and/or volume rendering reformats were acquired of the central intracranial vasculature and neck separately. For radiation dose reduction, the following was used: automated exposure control, adjustment of mA and/or kV according to patient size. COMPARISON: None. FINDINGS: Image quality: Diagnostic. BRAIN: CSF spaces: Ventricles are normal in size and shape. Basal cisterns are patent. No extra-axial fluid collections. Brain: No significant abnormality of the brain can be seen. Skull and face: Calvarium and facial bones appear intact, without suspicious lesions. Orbits appear normal. Sinuses: Sinuses and mastoids are clear. HEAD CT ANGIOGRAPHY: Anterior circulation: Intracranial internal carotid arteries are normal in size and flow. The flow within the paired anterior cerebral arteries is normal and symmetric. The flow within the middle cerebral arteries is normal and symmetric. The anterior communicating artery is seen. No aneurysms are seen. Posterior circulation: Calcified atherosclerotic plaque is seen in the intracranial portion of the right vertebral artery with suspected focal moderate to high-grade narrowing. The intracranial portion of the left vertebral artery is patent. They join to form a normal appearing basilar artery. type origin of the right [employer]. Flow within the posterior cerebral arteries is normal and symmetric. No aneurysms are seen. NECK CT ANGIOGRAPHY: Carotid system: The great vessels demonstrate a conventional anatomy as they arise from the aortic arch. The origins of the common carotid arteries appear patent. The common carotid arteries demonstrate normal caliber and courses. Atherosclerotic calcifications are seen at the carotid bifurcations without hemodynamically significant stenosis. The internal carotid arteries demonstrate normal calibers and courses. Posterior circulation: Focal calcified plaque at the right vertebral artery origin without significant stenosis. The left vertebral artery origin is patent. The more superior extracranial portions of both vertebral arteries also demonstrate normal courses and calibers. They join to form a normal appearing basilar artery. Soft tissues: Visualized neck soft tissues demonstrate no suspicious abnormalities. Bones: No suspicious bony lesions. Degenerative changes are seen in the cervical spine. IMPRESSION: 1. 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 2. Less than 50% stenosis of the right vertebral artery at the origin. 3. Otherwise, no hemodynamically significant arterial stenosis or large vessel occlusion in the major arteries of the head and neck. 4. No acute intracranial abnormality identified in the arterial phase of contrast enhancement. Any quantitative measurements of stenosis were performed using NASCET criteria. Approved by: Dieudonne Hampton M.D. on 01/11/2023 at 1:18
[2023-01-11] VITALS (12 sets, daily range): BP systolic 174–219; BP diastolic 83–106; PULSE 68–84; RESP 15–22; O2SAT 94–96
--- NOTE | 2023-01-11 00:16 | PC.NURSE ---
This nurse answered the patient's call light. The patient's family member was asking what are we waiting for. This nurse informed both patient and family member of the CT the doctor placed and the CT staff will come and get the patient to do the test. Patient's family member asked well how long does that take. This nurse responded with the time guidelines printed in each room stating anywhere between 1 and 4 hours. Family member expressed frustration about how long they were waiting for. This nurse expressed gratitude for their patience and did let the family know how busy the department has been, but how we have not been dismissing the patient and doing the best we can. The family member still expressing frustration took my remark and stated I don't need that attitude from you, I know people in this hospital. Patient was kind and respectful and states he understand the wait time. Patient's call light, declined any needs at this time. This nurse told the family member to have a wonderful night and left the room.
[2023-01-11] MEDS: LABETALOL 20 MG/4 ML SYRINGE 5 MG IV (01:51)
== END 2023-01-11 02:21 | disposition home or self-care (01) ==
PROVIDERS: Emergency Medicine; Emergency Provider Emergency Medicine
DX: R03.0 Elevated blood-pressure reading, without diagnosis of hypertension (principal); R41.0 Disorientation, unspecified
CPT/HCPCS: 36415; 70496; 70498; 71045; 80053; 82550; 83690; 83735; 84484; 85025; 85610; 85730; 93005; 96374; 99284; Q9967

== ENCOUNTER → 2024-11-27 07:26 | Outpatient (CLI) | payer MEDICARE, OTHER, SELFPAY ==
[2024-11-27 09:11] LABS: Thyroid Stimulating Hormone 0.741 uIU/mL (0.47-4.68)
== END ==
PROVIDERS: PCP Internal Medicine; Referring Provider Internal Medicine; Visit Provider Internal Medicine
DX: E03.9 Hypothyroidism, unspecified (principal); E29.1 Testicular hypofunction; R78.71 Abnormal lead level in blood
CPT/HCPCS: 36415; 83655; 84402; 84403; 84443

== ENCOUNTER → 2025-02-06 08:46 | Outpatient (CLI) | payer MEDICARE, OTHER, SELFPAY ==
[2025-02-06 10:25] LABS: Thyroid Stimulating Hormone 1.28 uIU/mL (0.47-4.68)
== END ==
PROVIDERS: PCP Internal Medicine; Referring Provider Internal Medicine; Visit Provider Internal Medicine
DX: E03.9 Hypothyroidism, unspecified (principal); E29.1 Testicular hypofunction
CPT/HCPCS: 36415; 84402; 84403; 84443